=== PATIENT | male | born 1960 | race Caucasian/White ===

== ENCOUNTER 2021-06-26 08:14 | Outpatient (CLI) | payer OTHER | END 2021-06-26 08:16 | disposition home or self-care (01) | LOC: NUCLEAR 08:14 | PROVIDERS: ATTEND Internal Medicine | DX: I25.89 Other forms of chronic ischemic heart disease (principal); I50.1 Left ventricular failure, unspecified | CPT/HCPCS: 78452; 93017; A9500; J0153 ==

== ENCOUNTER 2024-06-07 12:16 | Outpatient (CLI) | payer OTHER | END 2024-06-07 12:18 | disposition home or self-care (01) | LOC: NUCLEAR 12:16 | PROVIDERS: ATTEND Internal Medicine | DX: I73.9 Peripheral vascular disease, unspecified (principal) ==